=== PATIENT | female | born 1950 | race Caucasian/White ===

== ENCOUNTER → 2019-11-26 | Outpatient (CLI) | payer MEDICARE ==
[~2019-11-26] MED LIST: LISI40TA PO; MELO7.5T31 PO; SIMV40TA20 PO
[2019-11-26 12:37] LABS: BASOPHILS % (AUTO) 1 % (0-1); EOSINOPHILS % (AUTO) 1 % (1-7); LYMPHOCYTES % (AUTO) 38 % (22-44); MEAN CORPUSCULAR HEMOGLOBIN 32.9 pg (27.0-34.8); MEAN CORPUSCULAR HGB CONC 33.6 g/dL (32.4-35.8); MONOCYTES % (AUTO) 7 % (2-9); NEUTROPHILS % (AUTO) 54 % (42-75); PLATELET COUNT 140 x10^3/uL (130-400); RED BLOOD COUNT 4.43 x10^6/uL (3.82-5.3); RED CELL DISTRIBUTION WIDTH 13.1 % (9.6-15.2)
[2019-11-26 12:39] LABS: MD NO
[2019-11-26 12:47] LABS: INTERNATIONAL NORMALIZED RATIO 1.02 (0.93-1.1); PROTHROMBIN TIME 10.5 Seconds (9.6-11.5)
[2019-11-26 12:50] LABS: ALBUMIN 4.2 g/dL (3.4-5.0); ANION GAP 5 mmol/L (5-15); CALCIUM 9.4 mg/dL (8.5-10.1); CHLORIDE 106 mmol/L (98-107)
[2019-11-26 12:58] LABS: ALANINE AMINOTRANSFERASE 47 U/L (12-78); ALKALINE PHOSPHATASE 82 U/L (45-117); BILIRUBIN,TOTAL 0.8 mg/dL (0.2-1.0); CREATININE 0.83 mg/dL (0.55-1.02); TOTAL PROTEIN 7.5 g/dL (6.4-8.2)
== END | disposition home or self-care (01) ==
LOC: STAR 09:47
PROVIDERS: ATTEND Orthopaedic Surgery
DX: Z01.812 Encounter for preprocedural laboratory examination (principal); Z20.828 Contact with and (suspected) exposure to other viral communicable diseases; M16.11 Unilateral primary osteoarthritis, right hip; Z96.641 Presence of right artificial hip joint; R94.31 Abnormal electrocardiogram [ECG] [EKG]
CPT/HCPCS: 36415; 80053; 83036; 85025; 85610; 85730; 87081; 87147; 87635; 87806; 93005; G0475

== ENCOUNTER 2019-11-30 09:51 | Inpatient (IN) | payer MEDICARE ==
[~2019-11-30] VITALS: Ht 175.3 cm; Wt 85.8 kg
[2019-11-30] MEDS ORDERED: KETOROLAC 60 MG/2 ML ONE (10:05)
[2019-11-30] MEDS ORDERED: EPINEPHRINE 1 MG/ML, 1ML ONE (10:05)
[2019-11-30] MEDS ORDERED: SODIUM CHLORIDE 0.9% 0 ML ONE (10:05)
[2019-11-30] MEDS ORDERED: TRANEXAMIC ACID 100 MG/ML, 10ML ONE (10:05)
[2019-11-30] MEDS ORDERED: ROPIvacaine/PF 0.2%, 20 ML ONE (10:05)
[2019-12-04] MEDS ORDERED: DEXAMETHASONE 4 MG/ML, 1ML IVPush ONE (06:00)
[2019-12-04] MEDS ORDERED: CHLORHEXIDINE 15 ML UDC ONE (06:15)
[2019-12-04] MEDS ORDERED: ACETAMINOPHEN 500 MG TABLET ONE (06:15)
[2019-12-04] MEDS ORDERED: GABAPENTIN 300 MG CAPSULE ONE (06:15)
[2019-12-04] MEDS ORDERED: ACETAMINOPHEN 500 MG TABLET PO ONE (06:30)
[2019-12-04] MEDS ORDERED: CHLORHEXIDINE 15 ML UDC MM ONE (06:30)
[2019-12-04] MEDS ORDERED: VANCOMYCIN 1,300 MG in SODIUM CHLORIDE 0.9% 250 ML IV ONE (06:30)
[2019-12-04] MEDS ORDERED: LACTATED RINGERS 1,000 ML IV SCH (06:30)
[2019-12-04] MEDS ORDERED: VANCOMYCIN PER PHARMACY MC PRN (06:30)
[2019-12-04] MEDS ORDERED: GABAPENTIN 300 MG CAPSULE PO ONE (06:30)
[2019-12-04] MEDS ORDERED: LIDOCAINE-MPF 1%, 2ML INFIL ONE (06:30)
[2019-12-04] MEDS ORDERED: FENTANYL PF 250 MCG/5ML ONE (06:44)
[2019-12-04] MEDS ORDERED: MIDAZOLAM 1 MG/ML, 2ML ONE (06:44)
[2019-12-04] MEDS ORDERED: KETOROLAC 60 MG/2 ML ONE (06:45)
[2019-12-04] MEDS ORDERED: TRANEXAMIC ACID 100 MG/ML, 10ML ONE (06:45)
[2019-12-04] MEDS ORDERED: VANCOMYCIN 1,000 MG ONE (06:46)
[2019-12-04] MEDS ORDERED: ROPIvacaine/PF 0.2%, 20 ML ONE (06:46)
[2019-12-04] MEDS ORDERED: SODIUM CHLORIDE 0.9% 50 ML ONE (06:46)
[2019-12-04] MEDS ORDERED: EPINEPHRINE 1 MG/ML, 1ML ONE (06:46)
[2019-12-04] MEDS ORDERED: ALBUTEROL SULFATE 2.5 MG/3 ML NPPB PRN (07:00)
[2019-12-04] MEDS ORDERED: OXYcodone 5 MG/5 ML ORAL.SOL UDC PO PRN (07:00)
[2019-12-04] MEDS ORDERED: HYDROmorphone 2 MG/ML, 1ML IVPush PRN (07:00)
[2019-12-04] MEDS ORDERED: KETOROLAC 30 MG/1 ML IV PRN (07:00)
[2019-12-04] MEDS ORDERED: ACETAMINOPHEN 325 MG TABLET PO PRN ×2 (07:00→12:30)
[2019-12-04] MEDS ORDERED: PROMETHAZINE 25 MG/ML, 1ML IV PRN (07:00)
[2019-12-04] MEDS ORDERED: LABETALOL 5MG/ML, 20ML IV PRN (07:00)
[2019-12-04] MEDS ORDERED: hydrALAzine 20 MG/ML, 1ML IV PRN (07:00)
[2019-12-04] MEDS ORDERED: DIAZEPAM 5 MG/ML, 2ML IVPush PRN (07:00)
[2019-12-04] MEDS ORDERED: MEPERIDINE/PF 25MG/0.5ML IVPush PRN (07:00)
[2019-12-04] MEDS ORDERED: NEOSTIGMINE 1 MG/ML, 10ML ONE (07:18)
[2019-12-04] MEDS ORDERED: ROCURONIUM 10MG/ML,5ML ONE (07:18)
[2019-12-04] MEDS ORDERED: DEXAMETHASONE 4 MG/ML, 1ML ONE (07:18)
[2019-12-04] MEDS ORDERED: GLYCOPYRROLATE 0.2MG/1ML, 5ML ONE (07:18)
[2019-12-04] MEDS ORDERED: CEFAZOLIN 1,000 MG ONE (07:18)
[2019-12-04] MEDS ORDERED: SUCCINYLCHOLINE 20 MG/ML, 10ML ONE (07:18)
[2019-12-04] MEDS ORDERED: PROPOFOL 10 MG/ML, 20ML ONE (07:18)
[2019-12-04] MEDS ORDERED: ONDANSETRON 2MG/ML, 2ML ONE (07:18)
[2019-12-04] MEDS ORDERED: FENTANYL PF 100 MCG/2ML ONE (08:13)
[2019-12-04] MEDS: FENTANYL PF 100 MCG/2ML IV PRN ×2 (08:15→08:22)
[2019-12-04] MEDS ORDERED: OXYcodone 5 MG/5 ML ORAL.SOL UDC ONE (08:40)
[2019-12-04] MEDS ORDERED: TRANEXAMIC ACID 1,000 MG in SODIUM CHLORIDE 0.9% 100 ML IVPB ONE (09:00)
[2019-12-04] MEDS ORDERED: PSYLLIUM PACKET PO PRN (10:30)
[2019-12-04] MEDS ORDERED: POLYETHYLENE GLYCOL 17 GM PACKET PO PRN (10:30)
[2019-12-04] MEDS ORDERED: HYDROmorphone 1 MG/ML, 1ML INJ IVPush PRN (10:30)
[2019-12-04] MEDS ORDERED: SENNA/DOCUSATE TABLET PO PRN (10:30)
[2019-12-04] MEDS ORDERED: ONDANSETRON ODT 4 MG PO PRN (10:30)
[2019-12-04] MEDS ORDERED: OXYcodone IR 5MG TABLET PO PRN (10:30)
[2019-12-04] MEDS ORDERED: ALUMINUM/MAG/SIMETHICONE 30 ML UDC PO PRN (10:30)
[2019-12-04] MEDS ORDERED: ONDANSETRON 2MG/ML, 2ML IVPush PRN (10:30)
[2019-12-04] MEDS ORDERED: DIPHENHYDRAMINE 25 MG CAPSULE PO PRN (10:30)
[2019-12-04] MEDS ORDERED: MAGNESIUM HYDROXIDE 8%, 30ML UDC PO PRN (10:30)
[2019-12-04] MEDS ORDERED: DIPHENHYDRAMINE 50 MG/ML, 1ML IVPush PRN (10:30)
[2019-12-04] MEDS ORDERED: TAMSULOSIN 0.4 MG CAP.ER.24H PO SCH (10:30)
[2019-12-04] MEDS ORDERED: DOCUSATE 100 MG CAPSULE PO SCH (10:30)
[2019-12-04] MEDS ORDERED: POTASSIUM CHLORIDE 20 MEQ in D5%-0.45% NACL 1,000 ML IV SCH (10:30)
[2019-12-04] MEDS ORDERED: LISINOPRIL 40 MG TABLET PO SCH (11:00)
[2019-12-04 13:45] VITALS: BP 131/78
[2019-12-04] MEDS ORDERED: KETOROLAC 30 MG/1 ML IV SCH (15:00)
[2019-12-04] MEDS ORDERED: CEFAZOLIN PMX 1GM/50ML 50 ML IVPB SCH (15:30)
[2019-12-04] MEDS ORDERED: ASPIRIN 81 MG TABLET EC PO SCH (18:00)
[2019-12-04] MEDS ORDERED: VANCOMYCIN PMX 1GM/200ML 200 ML IVPB ONE (19:00)
[2019-12-04] MEDS ORDERED: SIMVASTATIN 20 MG TABLET PO SCH (21:00)
[2019-12-05] MEDS ORDERED: DEXAMETHASONE 4 MG/ML, 1ML IVPush ONE (06:00)
== END 2019-12-04 15:40 | disposition home or self-care (01) | DRG 468 ==
LOC: ORIP 12-04 05:37 → 3WST 12-04 09:45 → DCLOUNGE 12-04 15:27
PROVIDERS: ADMIT Orthopaedic Surgery; ATTEND Orthopaedic Surgery
PROC: 0SPR0JZ Removal of Synthetic Substitute from Right Hip Joint, Femoral Surface, Open Approach (ICD-10-PCS; 2019-12-04)
PROC: 0SRR0JZ Replacement of Right Hip Joint, Femoral Surface with Synthetic Substitute, Open Approach (ICD-10-PCS; principal; 2019-12-04 07:00)
DX: T84.090A Other mechanical complication of internal right hip prosthesis, initial encounter (principal); Y83.1 Surgical operation with implant of artificial internal device as the cause of abnormal reaction of the patient, or of later complication, without mention of misadventure at the time of the procedure; Z96.641 Presence of right artificial hip joint; Y92.89 Other specified places as the place of occurrence of the external cause; Z20.828 Contact with and (suspected) exposure to other viral communicable diseases; M21.751 Unequal limb length (acquired), right femur
CPT/HCPCS: 36415; 72170; 86850; 86900; 87635; J0171; J0690; J1100; J1885; J2250; J2405; J2704; J2710; J2795; J3010; J3370; C1776; J0330; J7050; J7120